=== PATIENT | male | born 1985 | race Caucasian/White ===

== ENCOUNTER 2021-08-17 07:52 | Emergency (ER) | payer OTHER ==
[~2021-08-17 07:52] MED LIST: BENTYL 10MG CAP10 MG PO; FLEXERIL 10 MG10 MG PO; IBUPROFEN800 MG PO; NAPROSYN500 MG PO; ZOFRAN4 MG PO
[2021-08-17] MEDS ORDERED: NAPROSYN500 MG PO (10:08)
== END 2021-08-17 10:18 | disposition home or self-care (01) ==
LOC: ER1 07:52
DX: M25.462 Effusion, left knee (principal); F17.200 Nicotine dependence, unspecified, uncomplicated
CPT/HCPCS: 73562; 99283

== ENCOUNTER 2022-03-26 00:15 | Emergency (ER) | payer OTHER | END 2022-03-26 05:25 | disposition home or self-care (01) | LOC: ER1 00:15 | DX: Z02.89 Encounter for other administrative examinations (principal); F17.200 Nicotine dependence, unspecified, uncomplicated | CPT/HCPCS: 99282 ==